=== PATIENT | female | born 1960 | race American Indian/Alaskan Native ===

== ENCOUNTER 2016-04-18 21:01 | Emergency (ER) | payer SELFPAY ==
[2016-04-18 21:36] VITALS: BP 193/106
== END 2016-04-19 03:20 | disposition left against medical advice (07) ==
LOC: ED 21:01
DX: M79.89 Other specified soft tissue disorders (principal); Z53.21 Procedure and treatment not carried out due to patient leaving prior to being seen by health care provider

== ENCOUNTER 2016-04-20 00:24 | Inpatient (IN) | payer OTHER ==
[2016-04-20 03:13] LABS: Blood Urea Nitrogen 8 mg/dL (7-17); Calcium 8.1 mg/dL (8.4-10.2); Carbon Dioxide 26 mmol/L (22-30); Glucose 101 mg/dL (65-100)
[2016-04-20 03:14] LABS: Chloride 105.2 mmol/L (98-107); Potassium 3.7 mmol/L (3.6-5.0); Sodium 142 mmol/L (137-145)
[2016-04-20 03:19] LABS: Anion Gap 15 mmol/L
[2016-04-20 03:36] LABS: Basophils % (Auto) 0.4 % (0.0-1.8); Eosinophils % (Auto) 4.7 % (0.0-4.3); Mean Corpuscular HGB Conc 28 % (30-34); Platelet Count 190 K/mm3 (140-440); Red Blood Count 4.01 M/mm3 (3.65-5.03); White Blood Count 8.4 K/mm3 (4.5-11.0)
[2016-04-20 03:37] LABS: Hematocrit 22.8 % (30.3-42.9); Hemoglobin 6.4 gm/dl (10.1-14.3); Mean Corpuscular Hemoglobin 16 pg (28-32); Mean Corpuscular Volume 57 fl (79-97); Red Cell Distribution Width 21.6 % (13.2-15.2)
--- NOTE | 2016-04-20 07:20 | XRay Report ---
CHEST XRAY, 2 VIEWS: History: Hypertension, swelling in legs. Findings: Compared to 02/20/12. Mild cardiomegaly and borderline pulmonary vascular congestion or noted. The lungs are clear and fully expanded, and the soft tissues and bony structures are normal. No evidence for pneumonia or CHF. IMPRESSION: Cardiomegaly.
--- NOTE | 2016-04-20 09:14 | Emergency Department Report ---
HPI - General Chief Complaint: High BP Time Seen by Provider: 04/20/16 09:07 - HPI HPI: Chief complaint: Leg swelling HPI: Patient is an 85-year-old female with a history of hypertension and congestive heart failure in the past 2 has not been taking her medications as she lost her job and her insurance and is here today complaining of bilateral lower leg swelling. Patient denies any chest pain or shortness of breath. Patient states she has never had a history of anemia and does not have exertional shortness of breath either. Patient states she has been having intermittent black stools but attributes them to the Pepto-Bismol she's been taking for her diarrhea. Patient denies any abdominal pain. Patient has not had a screening colonoscopy. Mode of arrival: private car Source: Patient Began: 3 days Duration: 3 days Context: See above Quality: Denies pain Severity: 0 out of 10 Improved with: Nothing Worsened with: Nothing Associated signs and symptoms: See above ED Past Medical Hx - Past Medical History Hx Hypertension: Yes Hx Congestive Heart Failure: Yes Additional medical history: Thyroid problems - Social History Smoking Status: Current Every Day Smoker - Medications Home Medications: Home Medications Medication Instructions Recorded Confirmed Last Taken Type No Known Home Medications [No 04/20/16 04/20/16 Unknown History Reported Home Medications] ED Review of Systems ROS: Stated complaint: HIGH BP/LEG SWELLING Other details as noted in HPI ROS Constitutional: No fever, positive recent weight loss ENT: No uri symptoms Cardiovascular: No chest pain Respiratory: No sob or cough GI: No nausea vomiting : No dysuria frequency or urgency, Skin: No rash Neuro: No focal weakness or numbness Psych: No depression Kevin/lymph: edema Physical Exam - Physical Exam Vital Signs: Vital Signs 04/20/16 04/20/16 02:16 09:06 Temperature 98.2 F 98.5 F Pulse Rate 90 68 Respiratory 18 18 Rate Blood Pressure 187/112 Blood Pressure 188/80 [Right] O2 Sat by Pulse 98 98 Oximetry Physical Exam: GENERAL: The patient is well-developed well-nourished . HEENT: Normocephalic. Atraumatic. Extraocular motions are intact. Patient has moist mucous membranes. NECK: Supple. No meningitic signs are noted. There is no adenopathy noted. CHEST/LUNGS: Clear to auscultation. There is no respiratory distress noted. HEART/CARDIOVASCULAR: Regular. There is no tachycardia. There is gallop and 3/ 6 systolic murmur. Hyperdynamic. ABDOMEN: Abdomen is soft, nontender. Patient has normal bowel sounds. There is no abdominal distention. Guaiac-negative brown stool SKIN: There is no rash. There is 2+ bilateral pitting pedal edema. There is no diaphoresis. NEURO: The patient is awake, alert, and oriented. The patient is cooperative. The patient has no focal neurologic deficits. The patient has normal speech. MUSCULOSKELETAL: There is no tenderness or deformity. There is no limitation range of motion. There is no evidence of acute injury. ED Course Vital Signs 04/20/16 04/20/16 02:16 09:06 Temperature 98.2 F 98.5 F Pulse Rate 90 68 Respiratory 18 18 Rate Blood Pressure 187/112 Blood Pressure 188/80 [Right] O2 Sat by Pulse 98 98 Oximetry ED Medical Decision Making - Lab Data Result diagrams: 04/20/16 02:35 04/20/16 02:35 Laboratory Tests 04/20/16 04/20/16 04/20/16 02:35 04:21 04:21 Calcium 8.1 L Total Creatine Kinase 55 CK-MB (CK-2) 2.0 CK-MB (CK-2) Rel Index 3.6 Troponin T < 0.010 < 0.010 NT-Pro-B Natriuret Pep 868.4 04/20/16 08:17 Calcium Total Creatine Kinase CK-MB (CK-2) CK-MB (CK-2) Rel Index Troponin T < 0.010 NT-Pro-B Natriuret Pep - EKG Data -: EKG Interpreted by Me EKG shows normal: sinus rhythm Rate: normal - EKG Data When compared to previous EKG there are: no significant change Interpretation: LVH, other (atrial abnormality) - Radiology Data Radiology results: report reviewed (chest x-ray shows cardiomegaly but no congestive heart failure.) Critical care attestation.: If time is entered above; I have spent that time in minutes in the direct care of this critically ill patient, excluding procedure time. ED Disposition Clinical Impression: Symptomatic anemia Disposition: OP ADMITTED IP TO THIS HOSP Is pt being admited?: Yes Does the pt Need Aspirin: No (anemia) Condition: Fair Time of Disposition: 09:56 (admit to the hospitalist)
--- NOTE | 2016-04-20 10:29 | Admit Criteria Form ---
Admission Criteria Documentation: ANEMIA, IRON DEFICIENCY OR UNSPECIFIED Clinical Indications for Inpatient Care (Place 'X' for any and all applicable criteria): Admission is indicated for ANY ONE of the following(1)(2)(3)(4)(5)(6)(7): [X] I. Inpatient admission required rather than observation care (Also use Anemia, Iron Deficiency or Unspecified: Observation Care guideline as appropriate) because of ANY ONE of the following: [] a) Hemodynamic instability that is severe or persistent [] b) Active bleeding that cannot be rapidly controlled [] c) CVS symptoms (i.e., dyspnea, chest pain, heart failure) that are severe or persistent [] d) Neurologic symptoms (i.e., cognitive impairment, recurrent syncope or near syncope) that are severe or persistent [] e) Cardiac arrhythmias of immediate concern [] f) Acute peripheral ischemia (e.g., pulseless, cool, mottled, or cyanotic extremity) [] g) High-risk low platelet count [] h) Acute renal failure [] i) Ongoing transfusion for blood loss (greater than 2 units) [] j) IV fluid to replace significant ongoing (eg, >24 hours) losses (> 3 L/m2 per day) [] k) Pulmonary artery catheter monitoring [] l) Supplemental oxygen or respiratory treatments for over 24 hours that are performable only in acute inpatient setting [] m) Immediate inpatient surgery [X] n) Other condition, treatment or monitoring requiring inpatient admission [] II Active massive hemorrhage [] III. Active hemolysis with rapidly progressive anemia [A](6) Extended stay beyond goal length of stay may be needed for (17)(18) []a) Diagnosed cause of anemia requiring longer hospitalization (eg, active GI bleeding, immune hemolysis requiring electrophoresis, complications of malignancy requiring acute care []b) Continued emergent anemia indicators (23) []c) Transfusion reactions []d) Associated leukopenia or thrombocytopenia needing inpatient care []e) Active comorbidities (eg, renal failure, heart failure) The original [facility] Care Guidelines content created by [facility] Care Guidelines has been revised. The portions of the content which have been revised are identified through the use of italic text or in bold. [facility] Guidelines has neither reviewed nor approved the modified material. All other unmodified content is copyright [facility] Care Guidelines. Please see references footnoted in the original [facility] edition 2016 Admission Criteria Met: Yes
[2016-04-20] MEDS ORDERED: APRESOLINE ONE (13:27)
[2016-04-20] MEDS ORDERED: PERCOCET 5/325 ONE (13:27)
[2016-04-20] MEDS ORDERED: APRESOLINE IV ONE (13:32)
[2016-04-20] MEDS ORDERED: NACL 0.9% 500 ML 500 ML IV ONE (13:33)
--- NOTE | 2016-04-20 13:36 | History and Physical Report ---
[id number] Chief complaint: Worsening leg edema, shortness of breath and generalized weakness for the last 3 for days History of present illness: Very pleasant 55-year-old female patient with significant past medical history of hypertension, congestive heart failure noncompliant with the medication secondary to social issues, presented to emergency room with worsening leg edema and worsening shortness of breath and vague chest pain Patient grades her chest pain between 3-4/10, complaints of exertional dyspnea, denies orthopnea or paroxysmal nocturnal dyspnea At the time of my evaluation patient did not have any chest pain, initial workup is consistent with severe anemia of hemoglobin of 6, complaints of intermittent black stool, denies hematemesis/fawn Past History Past Medical History: heart failure (known ejection fraction), hypertension, other (some thyroid problems) Past Surgical History: No surgical history (significant past surgical history) Social history: lives with family, smoking, alcohol abuse (occasional alcohol use), full code. denies: prescription drug abuse Family history: hypertension Medications and Allergies Allergies Allergy/AdvReac Type Severity Reaction Status Date / Time naproxen [From Naprosyn] AdvReac Swelling Verified 04/18/16 21:34 Home Medications Medication Instructions Recorded Confirmed Last Taken Type No Known Home Medications [No 04/20/16 04/20/16 Unknown History Reported Home Medications] Active Meds: Active Medications Enoxaparin Sodium (Lovenox) 40 mg SUB-Q QDAY@2200 SPEEDY Furosemide (Lasix) 20 mg IV QDAY SPEEDY Hydralazine HCl (Apresoline) 20 mg IV ONCE ONE Stop: 04/20/16 13:33 Hydralazine HCl (Apresoline) 25 mg PO Q8HR SPEEDY Sodium Chloride (Nacl 0.9% 500 Ml) 500 mls @ 0 mls/hr IV ONCE ONE PRN Reason: As Directed Stop: 04/20/16 13:34 Review of Systems Constitutional: fatigue, weakness, no weight loss, no weight gain Ears, nose, mouth and throat: no nasal congestion, no nasal discharge Cardiovascular: chest pain, edema, lightheadedness, shortness of breath, dyspnea on exertion, no orthopnea, no palpitations Respiratory: shortness of breath, dyspnea on exertion, no cough with sputum Gastrointestinal: melena, no abdominal pain, no nausea, no vomiting Genitourinary Female: no pelvic pain, no dysuria Musculoskeletal: no myalgias, no arthritis Integumentary: no rash, no lesions Neurological: no weakness, no parathesias, no seizures, no syncope Psychiatric: no anxiety, no depression Endocrine: no cold intolerance, no heat intolerance, no polydipsia, no polyuria Hematologic/Lymphatic: no easy bruising, no easy bleeding Allergic/Immunologic: no urticaria, no allergic rhinitis Exam - Constitutional Vitals: Temp Pulse Resp BP Pulse Ox 98 F 92 H 16 180/83 100 04/20/16 10:43 04/20/16 10:43 04/20/16 10:43 04/20/16 10:43 04/20/16 10:43 General appearance: Present: no acute distress, well-nourished, other (pallor) - EENT Eyes: Present: PERRL, EOM intact - Neck Neck: Present: supple, normal ROM - Respiratory Respiratory effort: normal Respiratory: bilateral: diminished, rales, negative: rhonchi, wheezing - Cardiovascular Rhythm: regular Heart Sounds: Present: S1 & S2 - Extremities Extremities: no ischemia, pulses intact, pulses symmetrical Extremity abnormal: edema Peripheral Pulses: within normal limits - Abdominal General gastrointestinal: Present: soft, non-tender, non-distended, normal bowel sounds - Integumentary Integumentary: Present: clear, warm - Musculoskeletal Musculoskeletal: strength equal bilaterally, generalized weakness - Psychiatric Psychiatric: appropriate mood/affect, cooperative - Neurologic Neurologic: CNII-XII intact, moves all extremities Results - Labs CBC & Chem 7: 04/21/16 04:57 04/21/16 04:57 Labs: Abnormal lab results 04/20/16 04/20/16 Range/Units 10:10 10:17 TSH < 0.005 L (0.270-4.200) mlU/mL Crossmatch See Detail Assessment and Plan --History of CHF, unknown ejection fraction Noncompliant with medications, start diuretics, beta blockers, rashawn inhibitors Input-output monitoring, daily weights, low sodium diet Echo for left ventricular function ejection fraction --Severe anemia Probably iron deficiency, type and cross, transfuse 2 units of PRBC Inpatient versus outpatient COTTON HEADER evaluation Stool guaiac, iron supplements --History of ? melena Stool guaiac, GI evaluation for possible endoscopy --Hypertension accelerated Uncontrolled secondary to noncompliance Start hydrochlorothiazide beta blockers RASHAWN inhibitor When necessary hydralazine --Hyperthyroidism with low TSH and high T4 Tapazole, beta blockers The rest of the workup outpatient/endocrinology --Lower extremity edema Secondary to congestive heart failure, rule out DVT --Ongoing tobacco use; smoking cessation counseling done this and consequences of tobacco use discussed with the patient Advised to quit using nicotine patch as needed I spent 10 minutes counseling the patient --DVT prophylaxis with Lovenox Patient may need outpatient COTTON HEADER evaluation to rule out COTTON HEADER causes of anemia.
[2016-04-20] MEDS ORDERED: PERCOCET 5/325 PO PRN (13:47)
[2016-04-20] MEDS ORDERED: TYLENOL PO PRN (13:48)
[2016-04-20 15:00] LABS: Total Iron Binding Capacity 366.8 mcg/dL (250-450)
[2016-04-20] MEDS: APRESOLINE PO SCH ×2 (15:31→23:06)
[2016-04-20] MEDS ORDERED: NACL 0.9% 500 ML 500 ML ONE (17:36)
[2016-04-20] MEDS ORDERED: ZOFRAN IV PRN (20:19)
[2016-04-20] MEDS: APRESOLINE IV PRN (20:26)
[2016-04-20] MEDS: LOPRESSOR PO SCH (21:31)
[2016-04-20] MEDS ORDERED: LOVENOX SUB-Q SCH (22:00)
[2016-04-20] MEDS ORDERED: LASIX IV ONE (22:10)
[2016-04-21] MEDS: APRESOLINE IV PRN (02:20)
[2016-04-21] MEDS ORDERED: NORMODYNE PO ONE (04:48)
[2016-04-21] MEDS ORDERED: TYLENOL PO ONE (04:48)
[2016-04-21 05:43] LABS: Mean Corpuscular HGB Conc 29 % (30-34); Red Blood Count 4.53 M/mm3 (3.65-5.03)
[2016-04-21 05:49] LABS: Hematocrit 27.4 % (30.3-42.9); Mean Corpuscular Hemoglobin 18 pg (28-32); Mean Corpuscular Volume 61 fl (79-97); Platelet Count 185 K/mm3 (140-440); Red Cell Distribution Width 26.7 % (13.2-15.2)
[2016-04-21 05:59] LABS: Blood Urea Nitrogen 11 mg/dL (7-17); Calcium 8.1 mg/dL (8.4-10.2); Carbon Dioxide 25 mmol/L (22-30); Chloride 104.4 mmol/L (98-107); Glucose 123 mg/dL (65-100); Magnesium 1.6 mg/dL (1.7-2.3); Potassium 3.2 mmol/L (3.6-5.0); Sodium 140 mmol/L (137-145)
[2016-04-21 06:07] LABS: Anion Gap 14 mmol/L
[2016-04-21] MEDS: APRESOLINE PO SCH ×3 (06:47→23:14)
[2016-04-21 06:57] LABS: Anisocytosis 3+; Blastocytes % (Manual) 0 %; Hypochromasia 3+; Microcytosis 2+
[2016-04-21 06:58] LABS: Elliptocytes Rare; Target Cells Rare
[2016-04-21 06:59] LABS: Diff Status Complete
[2016-04-21] MEDS: ZESTRIL PO SCH (09:08)
[2016-04-21] MEDS: HCTZ PO SCH (09:08)
[2016-04-21] MEDS: LASIX IV SCH (09:09)
[2016-04-21] MEDS: LOPRESSOR PO SCH ×2 (09:09→23:13)
[2016-04-21] MEDS: K-DUR PO SCH ×2 (09:17→13:52)
--- NOTE | 2016-04-21 09:55 | Echocardiography Report ---
Transthoracic Echocardiogram Indication: CHF BP: 136/62 Conclusions *1. Normal LV size and function, EF 65-70%. *2. Mild-moderate conc LVH. *3. Dilated LA. *4. Dilated R heart chambers, moderate TR, moderate pulm HTN. Findings Procedure Info: The study quality is fair. The study is technically limited due to the patient's smoking history. Left Ventricle: The left ventricular chamber size is normal. Mild to moderate concentric left ventricular hypertrophy is observed. Global left ventricular systolic function is normal. The estimated ejection fraction is 65-70%. Left Atrium: The left atrium is mildly dilated. Right Ventricle: The right ventricle is mildly dilated. The right ventricular global systolic function is mildly reduced. Right Atrium: The right atrium is moderately dilated. Aortic Valve: The aortic valve is trileaflet. The aortic valve leaflets are mildly thickened. There is mild aortic regurgitation. There is no evidence of aortic stenosis. Mitral Valve: The mitral valve leaflets appear myxomatous. The mitral valve leaflets are mildly thickened. There is mild mitral regurgitation. There is no evidence of mitral stenosis. Tricuspid Valve: The tricuspid valve leaflets are normal. There is moderate tricuspid regurgitation. The right ventricular systolic pressure is calculated at 50 mmHg. There is evidence of moderate pulmonary hypertension. There is no tricuspid stenosis. Pulmonic Valve: The pulmonic valve is not well visualized. There is trace pulmonic regurgitation. There is no pulmonic stenosis. Pericardium: There is no pericardial effusion. No pleural effusion is present. Aorta: There is no dilatation of the ascending aorta. There is no dilatation of the aortic root. Pulmonary Artery: The main pulmonary artery is not well visualized. Venous: The inferior vena cava is dilated. There is a greater than 50% respiratory change in the inferior vena cava dimension. Measurements Chambers MM Name Value Normal Range IVSd (MM) 1.35 cm (0.6 - 1.1) LVPWd (MM) 1.51 cm (0.6 - 1.1) IVS:LVPW ratio 0.89 ratio - LVIDd (MM) 4.45 cm (3.7 - 5.6) LVIDs (MM) 2.61 cm (2 - 2.8) LV FS (Teichholz) (MM) 41.3 % - LV FS (cube) (MM) 41.3 % - EF Teichholz (MM) 72.5 % - Chambers 2D Name Value Normal Range IVSd (2D) 1.46 cm (0.6 - 1.1) LVPWd 1.8 cm - LVPWd (2D) 1.82 cm (0.6 - 1.1) IVS:LVPW ratio (2D) 0.8 ratio - LVIDd 3.5 cm - LVIDs 2 cm - LVIDd (2D) 3.48 cm (3.7 - 5.6) LVIDs (2D) 1.99 cm (2 - 3.8) LV FS (Teichholz) (2D) 42.8 % - LV FS (cube) (2D) 42.8 % - LV EF (2D) 75 % - EF Teichholz (2D) 74.9 % - LA dimension 4.5 cm - Ao root diameter (2D) 2.9 cm (2 - 3.7) LA dimension (AP) 2D 4.5 cm (1.9 - 4) LA:Ao ratio (2D) 1.55 ratio - Volumes/Mass Name Value Normal Range LA ESV SP 4CH (MOD) 95 ml - LV EDV SP 4CH (MOD) 72 ml - LV ESV SP 4CH (MOD) 26 ml - EF SP 4CH (MOD) 64 % - Diastolic/Systolic Function Name Value Normal Range MV E-wave Vmax 1.44 m/sec - MV deceleration time 285 msec - MV A-wave Vmax 1 m/sec - MV E:A ratio 1.4 ratio - LV septal e' Vmax 0.07 m/sec - LV lateral e' Vmax 0.14 m/sec - LV E:e' septal ratio 19.4 ratio - LV E:e' lateral ratio 10.1 ratio - Aortic Valve Name Value Normal Range AV Vmax 2.25 m/sec - AV peak gradient 20 mmHg - LVOT diameter 2 cm - LVOT Vmax 1.53 m/sec - LVOT peak gradient 9 mmHg - MARGOT (continuity Vmax) 2.14 cm2 - AR PHT 334 msec - AR peak gradient 79 mmHg - Tricuspid Valve Name Value Normal Range TR Vmax 3.54 m/sec - TR peak gradient 50 mmHg - RVSP 50 mmHg - Pulmonic Valve/Qp:Qs Name Value Normal Range PV Vmax 1.06 m/sec - PV peak gradient 4 mmHg - NC end-diastolic Vmax 1.22 m/sec - PV acceleration time 127 msec -
[2016-04-21] MEDS ORDERED: TAPAZOLE PO SCH (10:00)
[2016-04-21] MEDS ORDERED: HABITROL TD SCH (10:00)
[2016-04-21] MEDS ORDERED: MAGNESIUM SULFATE 2GM/50ML 50 ML IV ONE (11:00)
--- NOTE | 2016-04-21 11:09 | Progress Note ---
Assessment and Plan Assessment and plan: -History of CHF, unknown ejection fraction. EF 65-70% on Echo done yesterday.here. She is noncompliant with medications, started Lasix, beta blockers, rashawn inhibitors Input-output monitoring, daily weights, low sodium diet Severe anemia Hgb 8.0 after 2 Units PRBC Probably iron deficiency, type and cross, transfused 2 units of PRBC Inpatient versus outpatient [employer] evaluation Stool guaiac negative --History of ? melena Stool guaiac negative here., GI evaluation for possible endoscopy --Hypertension accelerated Uncontrolled secondary to noncompliance Started hydrochlorothiazide beta blockers RASHAWN inhibitor --Hyperthyroidism with low TSH and high T4 Tapazole, beta blockers The rest of the workup outpatient. She has been out of meds. --Lower extremity edema Secondary to congestive heart failure --DVT prophylaxis with Lovenox Elevated d-dimer. Will get CT Angio in am. give Lovenox 1m/kg subcut q12 h until PE ruled out. History Interval history: Less shortness of breath, no chest pain, leg edema Hospitalist Physical - Physical exam Narrative exam: Gen appearance : not in acute distress, obese, HEENT: Normocephalic atraumatic, neck Neck: supple, no JVD. Lungs: clear to auscultation bilaterally, no crackles no wheezes Heart: S1 and S2 regular, no murmurs no gallop Abdomen: soft, nontender, nondistended normal bowel sounds Extremities: bilateral lower ext edema, no clubbing or cyanosis Neuro awake alert oriented 3, no focal signs - Constitutional Vitals: Temp Pulse Resp BP Pulse Ox 99.0 F 75 18 130/65 99 04/21/16 08:00 04/21/16 08:00 04/21/16 08:00 04/21/16 08:00 04/21/16 08:00 General appearance: Present: no acute distress Results - Labs CBC & Chem 7: 04/21/16 04:57 04/21/16 19:04 Labs: Laboratory Last Values WBC 10.0 K/mm3 (4.5-11.0) 04/21/16 04:57 RBC 4.53 M/mm3 (3.65-5.03) 04/21/16 04:57 Hgb 8.0 gm/dl (10.1-14.3) L 04/21/16 04:57 Hct 27.4 % (30.3-42.9) L 04/21/16 04:57 MCV 61 fl (79-97) L D 04/21/16 04:57 MCH 18 pg (28-32) L 04/21/16 04:57 MCHC 29 % (30-34) L 04/21/16 04:57 RDW 26.7 % (13.2-15.2) H 04/21/16 04:57 Plt Count 185 K/mm3 (140-440) 04/21/16 04:57 Lymph % (Auto) 20.6 % (13.4-35.0) 04/20/16 02:35 Sandoval % (Auto) 14.0 % (0.0-7.3) H 04/20/16 02:35 Eos % (Auto) 4.7 % (0.0-4.3) H 04/20/16 02:35 Baso % (Auto) 0.4 % (0.0-1.8) 04/20/16 02:35 Lymph # 1.7 K/mm3 (1.2-5.4) 04/20/16 02:35 Sandoval # 1.2 K/mm3 (0.0-0.8) H 04/20/16 02:35 Eos # 0.4 K/mm3 (0.0-0.4) 04/20/16 02:35 Baso # 0.0 K/mm3 (0.0-0.1) 04/20/16 02:35 Add Manual Diff Complete 04/21/16 04:57 Total Counted 100 04/21/16 04:57 Seg Neutrophils % 60.3 % (40.0-70.0) 04/20/16 02:35 Seg Neuts % (Manual) 77.0 % (40.0-70.0) H 04/21/16 04:57 Band Neutrophils % 0 % 04/21/16 04:57 Lymphocytes % (Manual) 15.0 % (13.4-35.0) 04/21/16 04:57 Reactive Lymphs % (Man) 0 % 04/21/16 04:57 Monocytes % (Manual) 6.0 % (0.0-7.3) 04/21/16 04:57 Eosinophils % (Manual) 1.0 % (0.0-4.3) 04/21/16 04:57 Basophils % (Manual) 1.0 % (0.0-1.8) 04/21/16 04:57 Metamyelocytes % 0 % 04/21/16 04:57 Myelocytes % 0 % 04/21/16 04:57 Promyelocytes % 0 % 04/21/16 04:57 Blast Cells % 0 % 04/21/16 04:57 Nucleated RBC % Not Reportable 04/21/16 04:57 Seg Neutrophils # 5.1 K/mm3 (1.8-7.7) 04/20/16 02:35 Seg Neutrophils # Man 7.7 K/mm3 (1.8-7.7) 04/21/16 04:57 Band Neutrophils # 0.0 K/mm3 04/21/16 04:57 Lymphocytes # (Manual) 1.5 K/mm3 (1.2-5.4) 04/21/16 04:57 Abs React Lymphs (Man) 0.0 K/mm3 04/21/16 04:57 Monocytes # (Manual) 0.6 K/mm3 (0.0-0.8) 04/21/16 04:57 Eosinophils # (Manual) 0.1 K/mm3 (0.0-0.4) 04/21/16 04:57 Basophils # (Manual) 0.1 K/mm3 (0.0-0.1) 04/21/16 04:57 Metamyelocytes # 0.0 K/mm3 04/21/16 04:57 Myelocytes # 0.0 K/mm3 04/21/16 04:57 Promyelocytes # 0.0 K/mm3 04/21/16 04:57 Blast Cells # 0.0 K/mm3 04/21/16 04:57 WBC Morphology Not Reportable 04/21/16 04:57 Hypersegmented Neuts Not Reportable 04/21/16 04:57 Hyposegmented Neuts Not Reportable 04/21/16 04:57 Hypogranular Neuts Not Reportable 04/21/16 04:57 Smudge Cells Not Reportable 04/21/16 04:57 Toxic Granulation Not Reportable 04/21/16 04:57 Toxic Vacuolation Not Reportable 04/21/16 04:57 Dohle Bodies Not Reportable 04/21/16 04:57 Pelger-Huet Anomaly Not Reportable 04/21/16 04:57 Abdirizak Rods Not Reportable 04/21/16 04:57 Platelet Estimate Appears normal 04/21/16 04:57 Clumped Platelets Not Reportable 04/21/16 04:57 Plt Clumps, EDTA Not Reportable 04/21/16 04:57 Large Platelets Not Reportable 04/21/16 04:57 Giant Platelets Not Reportable 04/21/16 04:57 Platelet Satelliting Not Reportable 04/21/16 04:57 Plt Morphology Comment Not Reportable 04/21/16 04:57 RBC Morphology Not Reportable 04/21/16 04:57 Dimorphic RBCs Not Reportable 04/21/16 04:57 Polychromasia Not Reportable 04/21/16 04:57 Hypochromasia 3+ 04/21/16 04:57 Poikilocytosis Not Reportable 04/21/16 04:57 Anisocytosis 3+ 04/21/16 04:57 Microcytosis 2+ 04/21/16 04:57 Macrocytosis Not Reportable 04/21/16 04:57 Spherocytes Not Reportable 04/21/16 04:57 Pappenheimer Bodies Not Reportable 04/21/16 04:57 Sickle Cells Not Reportable 04/21/16 04:57 Target Cells Rare 04/21/16 04:57 Tear Drop Cells Not Reportable 04/21/16 04:57 Ovalocytes Not Reportable 04/21/16 04:57 Helmet Cells Not Reportable 04/21/16 04:57 [place] Bodies Not Reportable 04/21/16 04:57 [place] Rings Not Reportable 04/21/16 04:57 [place] Cells Not Reportable 04/21/16 04:57 Bite Cells Not Reportable 04/21/16 04:57 Crenated Cell Not Reportable 04/21/16 04:57 Elliptocytes Rare 04/21/16 04:57 Acanthocytes (Spur) Not Reportable 04/21/16 04:57 Rouleaux Not Reportable 04/21/16 04:57 Hemoglobin C Crystals Not Reportable 04/21/16 04:57 Schistocytes Not Reportable 04/21/16 04:57 Malaria parasites Not Reportable 04/21/16 04:57 Michael Bodies Not Reportable 04/21/16 04:57 Hem Pathologist Commnt No 01/17/17 04:57 Sodium 140 mmol/L (137-145) 04/21/16 04:57 Potassium 3.2 mmol/L (3.6-5.0) L 04/21/16 04:57 Chloride 104.4 mmol/L (98-107) 04/21/16 04:57 Carbon Dioxide 25 mmol/L (22-30) 04/21/16 04:57 Anion Gap 14 mmol/L 04/21/16 04:57 BUN 11 mg/dL (7-17) 04/21/16 04:57 Creatinine 0.4 mg/dL (0.7-1.2) L 04/21/16 04:57 Estimated GFR > 60 ml/min 04/21/16 04:57 BUN/Creatinine Ratio 27.50 % 04/21/16 04:57 Glucose 123 mg/dL (65-100) H 04/21/16 04:57 Calcium 8.1 mg/dL (8.4-10.2) L 04/21/16 04:57 Magnesium 1.6 mg/dL (1.7-2.3) L 04/21/16 04:57 Iron 14 ug/dL (37-170) L 04/20/16 08:17 TIBC 366.80 mcg/dL (250-450) 04/20/16 08:17 % Saturation 3.82 % 04/20/16 08:17 Transferrin 262 mg/dl (192-382) 04/20/16 08:17 Total Creatine Kinase 55 units/L (30-135) 04/20/16 04:21 CK-MB (CK-2) 2.0 ng/mL (0.0-4.0) 04/20/16 04:21 CK-MB (CK-2) Rel Index 3.6 (0-4) 04/20/16 04:21 Troponin T < 0.010 ng/mL (0.00-0.029) 04/20/16 08:17 NT-Pro-B Natriuret Pep 868.4 pg/mL (0-900) 04/20/16 02:35 TSH < 0.005 mlU/mL (0.270-4.200) L 04/20/16 10:17 Free T4 3.69 ng/dL (0.76-1.46) H 04/20/16 10:17 Blood Type B POSITIVE 04/20/16 10:10 Antibody Screen Negative 04/20/16 10:10 Crossmatch See Detail 04/20/16 10:10
--- NOTE | 2016-04-21 13:28 | Gastroenterology Consultation ---
History of Present Illness - Reason for Consult Consult date: 04/21/16 Iron deficiency anemia, symptomatic anemia Requesting physician: LONI GONZALEZ - History of Present Illness Asked to evaluate this 55yo woman for symptomatic anemia/iron deficiency. She had a Hb of 6.4 on admission, which is now 8. She denies any black stools and no BRBPR. She states that her last colonoscopy was "awhile ago" and that she was due for another one. She states that she has lost 25lbs unintentionally over the past 2 mos. No abdominal pain, but mentions periodic constipation. No black, tarry stools. She denies any melena or overt hematochezia. She had mild CP/SOB on admission, which have improved. Past History Past Medical History: heart failure (known ejection fraction), hypertension, other (some thyroid problems) Past Surgical History: No surgical history (significant past surgical history) Social history: lives with family, smoking, alcohol abuse (occasional alcohol use), full code. denies: prescription drug abuse Family history: hypertension Medications and Allergies Allergies Allergy/AdvReac Type Severity Reaction Status Date / Time naproxen [From Naprosyn] AdvReac Swelling Verified 04/18/16 21:34 Home Medications Medication Instructions Recorded Confirmed Last Taken Type No Known Home Medications [No 04/20/16 04/20/16 Unknown History Reported Home Medications] Active Meds: Active Medications Acetaminophen (Tylenol) 650 mg PO Q6H PRN PRN Reason: Pain, Mild (1-3) Last Admin: 04/20/16 23:20 Dose: 650 mg Bisacodyl (Dulcolax) 20 mg PO ONCE ONE Stop: 04/21/16 22:01 Enoxaparin Sodium (Lovenox) 40 mg SUB-Q QDAY@2200 [facility] Last Admin: 04/20/16 23:06 Dose: 40 mg Furosemide (Lasix) 20 mg IV QDAY [facility] Last Admin: 04/21/16 09:09 Dose: 20 mg Hydralazine HCl (Apresoline) 25 mg PO Q8HR [facility] Last Admin: 04/21/16 06:47 Dose: Not Given Hydralazine HCl (Apresoline) 20 mg IV Q6H PRN PRN Reason: sbp>170 Last Admin: 04/21/16 02:20 Dose: 20 mg Hydrochlorothiazide (Hctz) 25 mg PO QDAY [facility] Last Admin: 04/21/16 09:08 Dose: 25 mg Lisinopril (Zestril) 20 mg PO QDAY [facility] Last Admin: 04/21/16 09:08 Dose: 20 mg Methimazole (Tapazole) 10 mg PO Q24HR [facility] Last Admin: 04/21/16 09:09 Dose: 10 mg Metoprolol Tartrate (Lopressor) 25 mg PO BID [facility] Last Admin: 04/21/16 09:09 Dose: 25 mg Nicotine (Habitrol) 14 mg TD QDAY [facility] Last Admin: 04/21/16 09:57 Dose: 14 mg Ondansetron HCl (Zofran) 4 mg IV Q6H PRN PRN Reason: Nausea And Vomiting Last Admin: 04/20/16 20:25 Dose: 4 mg Oxycodone/Acetaminophen (Percocet 5/325) 1 tab PO Q8H PRN PRN Reason: Pain, Moderate (4-6) Polyethylene Glycol/Electrolytes (Golytely) 4,000 ml PO ONCE ONE Stop: 04/21/16 17:01 Review of Systems - Review of Systems All systems: negative (chest pain, SOB, FLETCHER, fatigue, weight loss of 25lbs) Exam - Constitutional Vital Signs: Temp Pulse Resp BP Pulse Ox 98.9 F 84 16 154/69 98 04/21/16 11:30 04/21/16 11:30 04/21/16 11:30 04/21/16 11:30 04/21/16 11:30 General appearance: no acute distress - EENT Eyes: PERRL - Neck Neck: supple - Respiratory Respiratory: bilateral: CTA - Cardiovascular Rhythm: regular Heart Sounds: Present: S1 & S2 Extremity abnormal: edema - Gastrointestinal General gastrointestinal: Present: soft, non-tender, non-distended, normal bowel sounds - Neurologic Neurological: alert and oriented x3 - Psychiatric Psychiatric: appropriate mood/affect - Labs CBC & Chem 7: 04/21/16 04:57 04/21/16 04:57 Lab Results: Laboratory Results - last 24 hr 04/20/16 04/20/16 04/21/16 10:10 10:17 04:57 WBC 10.0 RBC 4.53 Hgb 8.0 L Hct 27.4 L MCV 61 L D MCH 18 L MCHC 29 L RDW 26.7 H Plt Count 185 Add Manual Diff Complete Total Counted 100 Seg Neuts % (Manual) 77.0 H Band Neutrophils % 0 Lymphocytes % (Manual) 15.0 Reactive Lymphs % (Man) 0 Monocytes % (Manual) 6.0 Eosinophils % (Manual) 1.0 Basophils % (Manual) 1.0 Metamyelocytes % 0 Myelocytes % 0 Promyelocytes % 0 Blast Cells % 0 Nucleated RBC % Not Reportable Seg Neutrophils # Man 7.7 Band Neutrophils # 0.0 Lymphocytes # (Manual) 1.5 Abs React Lymphs (Man) 0.0 Monocytes # (Manual) 0.6 Eosinophils # (Manual) 0.1 Basophils # (Manual) 0.1 Metamyelocytes # 0.0 Myelocytes # 0.0 Promyelocytes # 0.0 Blast Cells # 0.0 WBC Morphology Not Reportable Hypersegmented Neuts Not Reportable Hyposegmented Neuts Not Reportable Hypogranular Neuts Not Reportable Smudge Cells Not Reportable Toxic Granulation Not Reportable Toxic Vacuolation Not Reportable Dohle Bodies Not Reportable Pelger-Huet Anomaly Not Reportable Abdirizak Rods Not Reportable Platelet Estimate Appears normal Clumped Platelets Not Reportable Plt Clumps, EDTA Not Reportable Large Platelets Not Reportable Giant Platelets Not Reportable Platelet Satelliting Not Reportable Plt Morphology Comment Not Reportable RBC Morphology Not Reportable Dimorphic RBCs Not Reportable Polychromasia Not Reportable Hypochromasia 3+ Poikilocytosis Not Reportable Anisocytosis 3+ Microcytosis 2+ Macrocytosis Not Reportable Spherocytes Not Reportable Pappenheimer Bodies Not Reportable Sickle Cells Not Reportable Target Cells Rare Tear Drop Cells Not Reportable Ovalocytes Not Reportable Helmet Cells Not Reportable [place]red[place] Bodies Not Reportable Lagrange Rings Not Reportable Turner Cells Not Reportable Bite Cells Not Reportable Crenated Cell Not Reportable Elliptocytes Rare Acanthocytes (Spur) Not Reportable Rouleaux Not Reportable Hemoglobin C Crystals Not Reportable Schistocytes Not Reportable Malaria parasites Not Reportable Michael Bodies Not Reportable Hem Pathologist Commnt No Sodium Potassium Chloride Carbon Dioxide Anion Gap BUN Creatinine Estimated GFR BUN/Creatinine Ratio Glucose Calcium Magnesium TSH < 0.005 L Free T4 3.69 H Blood Type B POSITIVE Antibody Screen Negative Crossmatch See Detail 04/21/16 04:57 WBC RBC Hgb Hct MCV MCH MCHC RDW Plt Count Add Manual Diff Total Counted Seg Neuts % (Manual) Band Neutrophils % Lymphocytes % (Manual) Reactive Lymphs % (Man) Monocytes % (Manual) Eosinophils % (Manual) Basophils % (Manual) Metamyelocytes % Myelocytes % Promyelocytes % Blast Cells % Nucleated RBC % Seg Neutrophils # Man Band Neutrophils # Lymphocytes # (Manual) Abs React Lymphs (Man) Monocytes # (Manual) Eosinophils # (Manual) Basophils # (Manual) Metamyelocytes # Myelocytes # Promyelocytes # Blast Cells # WBC Morphology Hypersegmented Neuts Hyposegmented Neuts Hypogranular Neuts Smudge Cells Toxic Granulation Toxic Vacuolation Dohle Bodies Pelger-Huet Anomaly Abdirizak Rods Platelet Estimate Clumped Platelets Plt Clumps, EDTA Large Platelets Giant Platelets Platelet Satelliting Plt Morphology Comment RBC Morphology Dimorphic RBCs Polychromasia Hypochromasia Poikilocytosis Anisocytosis Microcytosis Macrocytosis Spherocytes Pappenheimer Bodies Sickle Cells Target Cells Tear Drop Cells Ovalocytes Helmet Cells [place]red[place] Bodies Lagrange Rings Turner Cells Bite Cells Crenated Cell Elliptocytes Acanthocytes (Spur) Rouleaux Hemoglobin C Crystals Schistocytes Malaria parasites Michael Bodies Hem Pathologist Commnt Sodium 140 Potassium 3.2 L Chloride 104.4 Carbon Dioxide 25 Anion Gap 14 BUN 11 Creatinine 0.4 L Estimated GFR > 60 BUN/Creatinine Ratio 27.50 Glucose 123 H Calcium 8.1 L Magnesium 1.6 L TSH Free T4 Blood Type Antibody Screen Crossmatch Assessment and Plan 55yo woman with above hx a/w symptomatic iron deficiency anemia. In addition, she has periodic constipation and unintentional weight loss of 25lbs over the past 2 mos. Both upper and lower GI pathology should be considered. Rec: 1) Clear liquids 2) Monitor Hb 3) Will prep tonight for EGD/Colon tomorrow 4) NPO after MN Thank you for allowing me to participate in the care of your patient. Please do not hesitate to contact me with any questions.
[2016-04-21 14:24] LABS: Bacteria,Urine 2+ /HPF (Negative); Bilirubin,Urine NEG (Negative); Blood,Urine NEG (Negative); Ketones,Urine NEG (Negative); Leukocyte Esterase,Urine LG (Negative); Mucus,Urine FEW /HPF; Nitrite,Urine NEG (Negative); Protein,Urine <15 mg/dL mg/dL (Negative); Urobilinogen,Urine < 2.0 mg/dL (<2.0)
--- NOTE | 2016-04-21 15:13 | Vascular Lab Report ---
LOWER EXTREMITY VENOUS DUPLEX: REASON FOR EXAM: Swelling. COMMENTS ON THE RIGHT: All veins visualized are freely compressible without evidence of internal echogenicity. Flow is spontaneous and phasic throughout. COMMENTS ON THE LEFT: All veins visualized are freely compressible without evidence of internal echogenicity. Flow is spontaneous and phasic throughout. IMPRESSION: No evidence of acute or chronic deep venous thrombosis in either lower extremity.
[2016-04-21] MEDS ORDERED: GOLYTELY PO ONE (17:00)
[2016-04-21 19:35] LABS: Anion Gap 15 mmol/L; BUN/Creatinine Ratio 18.33; Blood Urea Nitrogen 11 mg/dL (7-17); Calcium 8.3 mg/dL (8.4-10.2); Carbon Dioxide 26 mmol/L (22-30); Chloride 99.6 mmol/L (98-107); Glucose 93 mg/dL (65-100); Potassium 3.9 mmol/L (3.6-5.0); Sodium 137 mmol/L (137-145)
[2016-04-21] MEDS ORDERED: DULCOLAX PO ONE (22:00)
[2016-04-21] MEDS ORDERED: LOVENOX SUB-Q SCH (23:00)
[2016-04-22] MEDS ORDERED: WATER FOR IRRIG STERILE ONE (07:03)
[2016-04-22] MEDS ORDERED: WATER FOR IRRIG STERILE IR ONE ×2 (07:03→08:50)
[2016-04-22] MEDS ORDERED: INFANTS' GAS RELIEF PO ONE (07:04)
[2016-04-22] MEDS ORDERED: NACL 0.9% 1000 ML 1,000 ML ONE (07:31)
[2016-04-22] MEDS ORDERED: DIPRIVAN 10 MG/ML IV ONE ×4 (07:36→09:11)
[2016-04-22] MEDS ORDERED: XYLOCAINE MPF 2% ONE (08:00)
[2016-04-22] MEDS ORDERED: NORMODYNE IV ONE (08:09)
--- NOTE | 2016-04-22 08:50 | Post Operative Note ---
Pre-op diagnosis: Iron deficiency anemia, weight loss Post-op diagnosis: other (CARMEN, weight loss, antral polyp) Findings: EGD Esophagus: normal Stomach: 1.5cm polypoid lesion in antrum; s/p hot snare polypectomy. Single endoclip placed for additional hemostasis. Duodenum: Normal, up to 2nd portion; biopsied Colonoscopy Small int hemorrhoids. Good prep. No mass lesions seen. Imp: Iron-def anemia, weight loss; antral polypoid lesion seen on EGD, possible carcinoid Rec: 1) Return to floor 2) Monitor Hb 3) F/U path 4) Outpatient f/u in 2 weeks No further inpatient GI w/u needed. Please call with questions. Thank you! Procedure: EGD/Colon Anesthesia: MAC Surgeon: CL DE LA O Estimated blood loss: minimal Pathology: list (antral polyp, duodenum) Specimen disposition: to lab Condition: stable Disposition: floor
--- NOTE | 2016-04-22 08:54 | Anesthesia Day of Surgery ---
Anesthesia Day of Surgery - Day of Surgery Patient Examined: Yes Patient H&P Reviewed: Yes Patient is NPO: Yes Beta Blockers: Yes
--- NOTE | 2016-04-22 08:54 | Anesthesia Consultation ---
Anesthesia Consult and Med Hx Date of service: 04/22/16 - Airway Anesthetic Teeth Evaluation: Edentulous ROM Head & Neck: Adequate Mental/Hyoid Distance: Adequate Mallampati Class: Class II Intubation Access Assessment: Probably Good - Pulmonary Exam CTA: Yes (persistent cough present upon examination) - Cardiac Exam Cardiac Exam: RRR - Pre-Operative Health Status ASA Pre-Surgery Classification: ASA3 Proposed Anesthetic Plan: MAC - Pulmonary Hx Smoking: Yes (4-5 cig/day - >30y) Hx Asthma: No SOB: Yes (evenings) COPD: No Hx Pneumonia: No - Cardiovascular System Hx Hypertension: Yes (CHF; not controlled, b-abimael given w/n 24hrs) Hx Peripheral Vascular Disease: Yes (swelling of lower extremeties) - Gastrointestinal Hx Gastroesophageal Reflux Disease: No - Endocrine Hx End Stage Renal Disease: No Hx Hypothyroidism: Yes - Hematic Hx Anemia: Yes Hx Sickle Cell Disease: No - Other Systems Hx Alcohol Use: Yes (quit 2 months ago) Hx Substance Use: No Hx Cancer: No Hx Obesity: No
--- NOTE | 2016-04-22 10:10 | Operative Report ---
PROCEDURE PERFORMED: Colonoscopy. PREOPERATIVE DIAGNOSES: Iron deficiency anemia, weight loss. POSTOPERATIVE DIAGNOSES: Iron deficiency anemia, weight loss, internal hemorrhoids. ANESTHESIA: Via monitored anesthesia care. DESCRIPTION OF PROCEDURE: After informed consent was obtained, the patient was placed in left lateral decubitus position. Standard Fujinon colonoscope was inserted into the anus and advanced to the cecum confirmed by the appendiceal orifice and ileocecal valve. Scope was then carefully withdrawn and mucosa was carefully examined. The quality of prep was good. FINDINGS: There was evidence of small internal hemorrhoids on direct endoscopy. No mass lesions were identified and the exam was otherwise unremarkable. COMPLICATIONS: None. ESTIMATED BLOOD LOSS: None. IMPRESSION: A 55-year-old woman with iron deficiency anemia, weight loss. She is status post colonoscopy today as well as upper GI endoscopy. Colonoscopy is unremarkable for etiology, but EGD reveals a polypoid lesion in the gastric antrum. RECOMMENDATIONS: 1. Return to floor. 2. Monitor hemoglobin. 3. Await pathology from the EGD. 4. Outpatient followup in 2 weeks. At this time, no further inpatient GI workup will be needed and she is stable for discharge from a GI standpoint. Please do not hesitate to contact me with any questions. Thank you for allowing me to participate in the care of your patient. [facility]# [id number] MEGAN/KEILA
--- NOTE | 2016-04-22 10:41 | Operative Report ---
PROCEDURE PERFORMED: Upper endoscopy with biopsy, upper endoscopy with hot snare polypectomy, upper endoscopy with control of bleeding. PREOPERATIVE DIAGNOSES: Iron deficiency anemia, weight loss. POSTOPERATIVE DIAGNOSES: Iron deficiency anemia, weight loss, antral polyp. ANESTHESIA: Via monitored anesthesia care. DESCRIPTION OF PROCEDURE: After informed consent was obtained, the patient was placed in left lateral decubitus position. A standard Fujinon upper endoscope was inserted into the mouth and advanced to the second portion of duodenum. Scope was then carefully withdrawn and mucosa was carefully examined. FINDINGS: Esophagus appeared normal. Stomach: There was evidence of a 1.5 cm polypoid lesion in the gastric antrum. The lesion is status post removal via hot snare polypectomy. A small amount of bleeding was noted from the polypectomy site, so a single endoclip was placed for additional hemostasis. The polypoid lesion was subsequently retrieved via a Rivera net and removed in its entirety. Duodenum appeared normal up to the second portion. Cold forceps biopsies were taken to evaluate for celiac disease and sent for pathology. COMPLICATIONS: None. ESTIMATED BLOOD LOSS: Minimal. IMPRESSION: A 55-year-old woman with iron deficiency anemia, weight loss. She is status post upper endoscopy today with a 1.5 cm polypoid lesion in the antrum, which is possibly consistent with a carcinoid tumor. RECOMMENDATIONS: 1. Return to floor. 2. Monitor hemoglobin. 3. Regular diet. 4. Follow up pathology. 5. Proceed with colonoscopy. JOB# [id number] MEGAN/KEILA
--- NOTE | 2016-04-22 10:46 | Post Anesthesia Evaluation ---
- Post Anesthesia Evaluation Patient Participated: Yes Airway Patent: Yes Stable Respiratory Function: Yes Nausea/Vomiting: No Temp > 96.8F: Yes Pain Manageable: Yes Adequeate Hydration: Yes Anesthesia Complications: No
--- NOTE | 2016-04-22 14:26 | XRay Report ---
PORTABLE CHEST INDICATION: Shortness of breath, elevated d-dimer. COMPARISON: 04/20/2016 FINDINGS: Portable, frontal chest radiograph again demonstrates mild cardiomegaly. Slightly prominent markings centrally/mild peribronchial thickening. Subtle left retrocardiac opacity not entirely excluded versus overlying breast shadow. Clear remainder lungs however. No pleural effusions or CHF. Unremarkable bones. CONCLUSION: Mild cardiomegaly with possible slight bronchitis and questionable left retrocardiac opacity, as described. Please also correlate clinically and on future, PA and lateral radiographs, if obtainable. Thank you for the opportunity to participate in this patient's care.
--- NOTE | 2016-04-22 14:38 | Nuclear Medicine Report ---
Ventilation/perfusion imaging. On ventilation imaging the posterior images demonstrates a slight heterogeneity inferiorly on the left. On the washout images there is a small focal retention in the medial left lung base. There are multiple perfusion images with obliquities. The distribution of radionuclide is minimally inhomogeneous throughout both lungs but there are no focal areas of photon deficiency identified in either lung. Impression: 1. Minimal ventilation abnormality at medial left lung base. 2. No evidence of pulmonary embolus.
--- NOTE | 2016-04-22 14:52 | Discharge Summary ---
Providers - Providers Date of Admission: 04/20/16 09:49 Date of discharge: 04/22/16 Attending physician: LONI GONZALEZ 04/20/16 22:01 Consult to Physician [CONS] Routine Consulting Provider: CL DE LA O Reason For Exam: melena/anemia Place consult to:: Office Notified:: yes Phone number called:: [phone] Was contact made?: Yes If yes, spoke with:: Sarah Time called:: 09:38 Primary care physician: ENVIRONMENTAL SYSTEMS COORDINATOR Hospitalization Condition: Fair Disposition: DISCHARGED TO HOME OR SELFCARE - Discharge Diagnoses (1) Symptomatic anemia Status: Acute (2) Acute on chronic diastolic CHF (congestive heart failure) Status: Acute (3) Anemia due to chronic blood loss Status: Acute (4) Internal hemorrhoids Status: Acute (5) Gastric mass Status: Acute (6) Hypertensive urgency Status: Acute Core Measure Documentation - Palliative Care Palliative Care/ Comfort Measures: Not Applicable - Core Measures Any of the following diagnoses?: none Exam - Constitutional Vitals: Temp Pulse Resp BP Pulse Ox 99.0 F 87 20 186/74 100 04/22/16 10:35 04/22/16 10:35 04/22/16 10:35 04/22/16 10:35 04/22/16 08:59 Plan Activity: advance as tolerated Diet: low fat, low cholesterol, low salt Additional Instructions: 1.Follow up with PCP or [facility] in 1 week. 2.Follow up with Dr. De La O in 1 week, including pathology biopsy report for lesion in stomach. Follow up with: PRIMARY CARE, [Primary Care Provider] - 3-5 Days Prescriptions: Furosemide [Lasix] 20 mg PO QDAY #30 tablet Hydralazine HCl [Apresoline TAB] 50 mg PO Q8HR #90 tab Methimazole [Tapazole] 10 mg PO Q24HR #60 tablet Metoprolol [Lopressor TAB] 50 mg PO BID #60 tablet
[2016-04-22] MEDS: APRESOLINE PO SCH (14:58)
[2016-04-22] MEDS: LOPRESSOR PO SCH (14:59)
[2016-04-22] MEDS: HCTZ PO SCH (14:59)
[2016-04-22] MEDS ORDERED: APRESOLINE IV ONE (15:00)
[2016-04-22] MEDS: ZESTRIL PO SCH (15:00)
[2016-04-22] MEDS: LASIX IV SCH (17:31)
[2016-04-22] MEDS ORDERED: CATAPRES PO SCH (18:00)
[2016-04-22 18:03] VITALS: BP 156/71
== END 2016-04-22 19:11 | disposition home or self-care (01) | DRG 393 ==
LOC: ED 00:24 → 3A 09:49
PROVIDERS: ADMIT Internal Medicine; ATTEND Internal Medicine
PROC: 30233N1 Transfusion of Nonautologous Red Blood Cells into Peripheral Vein, Percutaneous Approach (ICD-10-PCS; principal; 2016-04-20)
PROC: 0DB68ZX Excision of Stomach, Via Natural or Artificial Opening Endoscopic, Diagnostic (ICD-10-PCS; 2016-04-22)
PROC: 0DB98ZX Excision of Duodenum, Via Natural or Artificial Opening Endoscopic, Diagnostic (ICD-10-PCS; 2016-04-22)
PROC: 0W3P8ZZ Control Bleeding in Gastrointestinal Tract, Via Natural or Artificial Opening Endoscopic (ICD-10-PCS; 2016-04-22)
DX: K64.8 Other hemorrhoids (principal); I50.33 Acute on chronic diastolic (congestive) heart failure; D62 Acute posthemorrhagic anemia; K31.9 Disease of stomach and duodenum, unspecified; J33.8 Other polyp of sinus; I11.0 Hypertensive heart disease with heart failure; I50.9 Heart failure, unspecified; Z91.19 Patient's noncompliance with other medical treatment and regimen; F10.10 Alcohol abuse, uncomplicated; Z82.49 Family history of ischemic heart disease and other diseases of the circulatory system; Z88.6 Allergy status to analgesic agent; E05.90 Thyrotoxicosis, unspecified without thyrotoxic crisis or storm; Z71.6 Tobacco abuse counseling; K59.00 Constipation, unspecified; D50.9 Iron deficiency anemia, unspecified; R63.4 Abnormal weight loss; Z68.25 Body mass index [BMI] 25.0-25.9, adult; I16.0 Hypertensive urgency; I73.9 Peripheral vascular disease, unspecified; F17.210 Nicotine dependence, cigarettes, uncomplicated
CPT/HCPCS: 36415; 71010; 71020; 78582; 80048; 81001; 82271; 82550; 82553; 83550; 83735; 83880; 84439; 84443; 84484; 85007; 85025; 85379; 86850; 86900; 86901; 86920; 87040; 88305; 88342; 93005; 93010; 93306; 93970; 96374; A9540; A9558; J0360; J1650; J1940; J2405; J2704; J3475; J7030; J7040; P9016

== ENCOUNTER 2016-05-06 17:30 | Emergency (ER) | payer SELFPAY ==
[2016-05-06 18:06] VITALS: BP 191/79
[2016-05-06 18:41] LABS: Mean Corpuscular HGB Conc 29 % (30-34); Platelet Count 257 K/mm3 (140-440); Red Blood Count 4.38 M/mm3 (3.65-5.03); White Blood Count 8.9 K/mm3 (4.5-11.0)
[2016-05-06 18:45] LABS: Hematocrit 26.9 % (30.3-42.9); Hemoglobin 7.8 gm/dl (10.1-14.3); Mean Corpuscular Hemoglobin 18 pg (28-32); Mean Corpuscular Volume 61 fl (79-97); Red Cell Distribution Width 27.8 % (13.2-15.2)
[2016-05-06 18:54] LABS: Anion Gap 16 mmol/L; BUN/Creatinine Ratio 18.33; Blood Urea Nitrogen 11 mg/dL (7-17); Carbon Dioxide 25 mmol/L (22-30); Chloride 98.7 mmol/L (98-107); Glucose 97 mg/dL (65-100); Potassium 3.1 mmol/L (3.6-5.0); Sodium 137 mmol/L (137-145)
[2016-05-06 19:40] LABS: Basophils % (Manual) 0 % (0.0-1.8); Blastocytes % (Manual) 0 %
[2016-05-06 19:41] LABS: Anisocytosis 3+; Helmet Cells Few; Hypochromasia 3+; Large Platelets Few; Microcytosis 2+; Platelet Estimate Consistent w Auto; Target Cells 1+
[2016-05-06 19:42] LABS: Diff Status Complete; Elliptocytes Rare
== END 2016-05-07 00:53 | disposition left against medical advice (07) ==
LOC: ED 17:30
DX: M79.89 Other specified soft tissue disorders (principal); Z53.21 Procedure and treatment not carried out due to patient leaving prior to being seen by health care provider
CPT/HCPCS: 36415; 80048; 83880; 85007; 85025

== ENCOUNTER 2016-05-09 16:30 | Emergency (ER) | payer OTHER ==
[2016-05-09 18:00] LABS: Mean Corpuscular HGB Conc 29 % (30-34); Platelet Count 268 K/mm3 (140-440); Red Blood Count 4.41 M/mm3 (3.65-5.03); White Blood Count 8.6 K/mm3 (4.5-11.0)
[2016-05-09 18:01] LABS: Hematocrit 26.9 % (30.3-42.9); Hemoglobin 7.9 gm/dl (10.1-14.3); Mean Corpuscular Hemoglobin 18 pg (28-32); Mean Corpuscular Volume 61 fl (79-97); Red Cell Distribution Width 27.6 % (13.2-15.2)
[2016-05-09 18:04] LABS: Anion Gap 16 mmol/L; Blood Urea Nitrogen 10 mg/dL (7-17); Calcium 7.9 mg/dL (8.4-10.2); Carbon Dioxide 25 mmol/L (22-30); Chloride 104.9 mmol/L (98-107); Glucose 109 mg/dL (65-100); Sodium 143 mmol/L (137-145)
[2016-05-09 19:10] LABS: Anisocytosis 3+; Basophils % (Manual) 0 % (0.0-1.8); Blastocytes % (Manual) 0 %
[2016-05-09 19:11] LABS: Hypochromasia 3+; Microcytosis 3+; Poikilocytosis 1+
[2016-05-09 19:13] LABS: Polychromasia Few; Target Cells Few
[2016-05-09 19:14] LABS: Elliptocytes 1+
[2016-05-09 19:15] LABS: Diff Status Complete; Giant Platelets Few; Large Platelets Few; Platelet Estimate Consistent w Auto
--- NOTE | 2016-05-09 22:20 | Emergency Department Report ---
ED General Adult HPI - General Chief complaint: Extremity Problem,Nontraumatic Stated complaint: SWOLLEN LEGS Time Seen by Provider: 05/09/16 22:09 Source: patient Mode of arrival: Wheelchair Limitations: No Limitations - History of Present Illness Initial comments: This is a pleasant individual who has noted increased swelling of her lower extremities over the past week. He indicates that she does not have a primary care physician. She wasn't admitted in the hospital approximately one month ago. She had anemia at that time and was transfused 2 units of blood. She did have colonoscopy and endoscopy at that time as well. Went home on Lasix. She denies going home on iron supplements. She did go home with some potassium supplement was run out of this. Denies any significant chest pain today. She denies fatigue or weakness in general. Onset/Timin -: Gradual, week(s) Location: lower extremity Radiation: non-radiation Severity scale (0 -10): 4 Quality: aching Consistency: constant Improves with: rest Worsens with: movement Associated Symptoms: denies: headaches, loss of appetite, malaise, nausea/ vomiting Treatments Prior to Arrival: none - Related Data Previous Rx's Medication Instructions Recorded Last Taken Type Hydralazine HCl [Apresoline TAB] 50 mg PO Q8HR #90 tab 04/22/16 Unknown Rx Methimazole [Tapazole] 10 mg PO Q24HR #60 tablet 04/22/16 Unknown Rx Metoprolol [Lopressor TAB] 50 mg PO BID #60 tablet 04/22/16 Unknown Rx amLODIPine [Norvasc] 5 mg PO DAILY #30 tab 04/22/16 Unknown Rx Ferrous Gluconate [Iron 256 MG tab] 256 mg PO DAILY #30 tablet 05/09/16 Unknown Rx Furosemide [Lasix TAB] 40 mg PO QDAY #30 tablet 05/09/16 Unknown Rx Potassium Chloride [K-Dur] 2 tab PO QDAY #60 tablet 05/09/16 Unknown Rx Allergies Allergy/AdvReac Type Severity Reaction Status Date / Time naproxen [From Naprosyn] AdvReac Swelling Verified 04/18/16 21:34 ED Review of Systems ROS: Stated complaint: SWOLLEN LEGS Other details as noted in HPI Constitutional: denies: chills, fever Eyes: denies: eye pain, eye discharge, vision change ENT: denies: ear pain, throat pain Respiratory: denies: cough, shortness of breath, wheezing Cardiovascular: denies: chest pain, palpitations Endocrine: no symptoms reported Gastrointestinal: denies: abdominal pain, nausea, diarrhea Genitourinary: denies: urgency, dysuria, discharge Musculoskeletal: other (edema). denies: back pain, joint swelling, arthralgia Skin: denies: rash, lesions Neurological: denies: headache, weakness, paresthesias Psychiatric: denies: anxiety, depression Hematological/Lymphatic: denies: easy bleeding, easy bruising ED Past Medical Hx - Past Medical History Hx Hypertension: Yes (CHF; not controlled, b-abimael given w/n 24hrs) Hx Congestive Heart Failure: Yes Hx Diabetes: No Hx Sickle Cell Disease: No Hx Asthma: No Hx COPD: No Additional medical history: Thyroid problems - Surgical History Past Surgical History?: No - Social History Smoking Status: Current Every Day Smoker Substance Use Type: None - Medications Home Medications: Home Medications Medication Instructions Recorded Confirmed Last Taken Type Hydralazine HCl [Apresoline TAB] 50 mg PO Q8HR #90 tab 04/22/16 Unknown Rx Methimazole [Tapazole] 10 mg PO Q24HR #60 tablet 04/22/16 Unknown Rx Metoprolol [Lopressor TAB] 50 mg PO BID #60 tablet 04/22/16 Unknown Rx amLODIPine [Norvasc] 5 mg PO DAILY #30 tab 04/22/16 Unknown Rx Ferrous Gluconate [Iron 256 MG tab] 256 mg PO DAILY #30 tablet 05/09/16 Unknown Rx Furosemide [Lasix TAB] 40 mg PO QDAY #30 tablet 05/09/16 Unknown Rx Potassium Chloride [K-Dur] 2 tab PO QDAY #60 tablet 05/09/16 Unknown Rx ED Physical Exam - General Limitations: No Limitations General appearance: alert, in no apparent distress - Head Head exam: Present: atraumatic, normocephalic - Eye Eye exam: Present: normal appearance, EOMI. Absent: scleral icterus - ENT ENT exam: Present: normal exam, mucous membranes moist - Neck Neck exam: Present: normal inspection - Respiratory Respiratory exam: Present: normal lung sounds bilaterally. Absent: respiratory distress - Cardiovascular Cardiovascular Exam: Present: regular rate, normal rhythm. Absent: systolic murmur, diastolic murmur, rubs, gallop - GI/Abdominal GI/Abdominal exam: Present: soft, normal bowel sounds - Extremities Exam Extremities exam: Present: tenderness, pedal edema (extending to the knees), other. Absent: calf tenderness - Back Exam Back exam: Present: normal inspection. Absent: paraspinal tenderness, vertebral tenderness (equal distal pedal pulses bilaterally) - Neurological Exam Neurological exam: Present: alert, oriented X3 - Psychiatric Psychiatric exam: Present: normal affect, normal mood - Skin Skin exam: Present: warm, dry, intact, normal color. Absent: rash ED Course Vital Signs 05/09/16 05/09/16 05/09/16 16:50 22:00 22:55 Temperature 98.6 F 98.7 F Pulse Rate 87 88 Respiratory 18 18 Rate Blood Pressure 174/69 Blood Pressure 167/62 [Left] O2 Sat by Pulse 100 99 99 Oximetry - Reevaluation(s) Reevaluation #1: 05/10/16 06:15 Review of patient's old records does indeed demonstrate that she has had colonoscopy and endoscopy. They were essentially unremarkable but for a polyp that was removed from the fundus of the stomach. So ultimately demonstrated no cancerous of note today, patient's hemoglobin continues to be somewhat lower. My suspicion is she is having ongoing GI bleeding source likely small bowel. I' m perplexed why she was not placed on iron when she left the hospital. She clearly demonstrates a microcytic anemia and I feel would benefit from iron therapy. We did speak at length regarding taking iron as well as stool softeners to help her tolerate this better. Patient is also noted to have increased pedal edema which I relate directly to her congestive heart failure likely systolic. Her kidney function is noted to be excellent her other electrolytes are within reasonable range. But acceptable. His are more with Lasix. I will double her dose of Lasix. She is already only on a low-dose of 20 mg. I have encouraged her to take her potassium appropriately as well. I did strongly encourage her to get a primary physician as well. She indicates that she will do that this week. Safe for home management. Oxygen Level appropriate on room air here. ED Medical Decision Making - Lab Data Result diagrams: 05/09/16 17:22 05/09/16 17:22 Critical care attestation.: If time is entered above; I have spent that time in minutes in the direct care of this critically ill patient, excluding procedure time. ED Disposition Clinical Impression: Anemia Qualifiers: Anemia type: iron deficiency Iron deficiency anemia type: chronic blood loss Qualified Code(s): D50.0 - Iron deficiency anemia secondary to blood loss ( chronic) Disposition: DISCHARGED TO HOME OR SELFCARE Is pt being admited?: No Does the pt Need Aspirin: No Condition: Stable Instructions: Heart Failure (ED) Additional Instructions: Take your medications as prescribed. Follow with your doctor next week. Prescriptions: Ferrous Gluconate [Iron 256 MG tab] 256 mg PO DAILY #30 tablet Furosemide [Lasix TAB] 40 mg PO QDAY #30 tablet Potassium Chloride [K-Dur] 2 tab PO QDAY #60 tablet Referrals: PRIMARY CARE, [Primary Care Provider] - 3-5 Days Time of Disposition: 22:19
[2016-05-09 23:20] VITALS: BP 167/62
== END 2016-05-09 23:25 | disposition home or self-care (01) ==
LOC: ED 16:30
DX: D50.0 Iron deficiency anemia secondary to blood loss (chronic) (principal); I10 Essential (primary) hypertension; I50.9 Heart failure, unspecified; F17.200 Nicotine dependence, unspecified, uncomplicated
CPT/HCPCS: 36415; 80048; 83880; 85007; 85025; 99283